=== PATIENT | female | born 1970 | race Caucasian/White ===

== ENCOUNTER → 2016-11-07 | Outpatient (CLI) | payer BC ==
[~2016-11-07] MED LIST: ALBUAER2 INH; AMPH15CA7 PO; AMPH1TAB83 PO; ATV/1 PO; BIOT1TAB5 PO; BUPR150T5 PO; EXEN0.048 SQ; EXEN1INJ3 INJ; FLAX100024 PO; LEVO75TA5 PO; LOSA25TA18 PO; LXP/20 PO; MAGN400T6 PO; METF-382 PO; MULT-506 PO; PRLSR20 PO; SIMV20TA2 PO; VNTHFA/IN INH
--- NOTE | 2016-11-07 19:38 | DIAGNOSTIC IMAGING REPORT ---
TEMPOROMANDIBULAR JOINT RADIOGRAPHS CLINICAL HISTORY: Left temporomandibular joint pain. COMPARISON STUDY: No previous studies for comparison. TECHNIQUE: Open and closed mouth images of the temporomandibular joints were obtained. FINDINGS: Right temporomandibular joint is within normal limits. The right mandibular condyle has a normal appearance. Alignment of the left temporomandibular joint is anatomic however there is irregularity with sclerosis of the left mandibular condyle. This suggests a degenerative process. There is no acute fracture. IMPRESSION: Sclerosis with mild irregularity of the left mandibular condyle which reflects a degenerative process of the left temporomandibular joint. Anatomic alignment. Electronically signed by: Tray Harrington M.D. 11/07/2016 7:36 PM Dictated Date/Time: 11/07/2016 7:35 PM
== END | disposition home or self-care (01) ==
LOC: C.RAD 17:46
PROVIDERS: ATTEND Nurse Practitioner Family
DX: M26.602 Left temporomandibular joint disorder, unspecified (principal)

== ENCOUNTER 2017-05-03 13:11 | Emergency (ER) | payer BC ==
[~2017-05-03] VITALS: Ht 162.6 cm; Wt 140.4 kg
[~2017-05-03 13:11] MED LIST changes: -AMPH15CA7 PO; -EXEN1INJ3 INJ; -VNTHFA/IN INH
[2017-05-03 13:15] VITALS: TEMP 37.2; Ht 162.6 cm; Wt 140.4 kg
[2017-05-03] MEDS ORDERED: OXYCODONE HCL IR 5 MG TAB (IMMEDIATE RELEASE) PO STA (13:29)
[2017-05-03] MEDS ORDERED: AMPH15CA7 PO (13:54)
[2017-05-03] MEDS ORDERED: EXEN1INJ3 INJ (13:54)
[2017-05-03] MEDS ORDERED: VNTHFA/IN INH (13:54)
--- NOTE | 2017-05-03 13:56 | DIAGNOSTIC IMAGING REPORT ---
L HAND MIN 3 VIEWS ROUTINE CLINICAL HISTORY: Left hand pain status post trauma COMPARISON: None. DISCUSSION: The study is limited from a technical standpoint as the patient was unable to straighten his fingers. No fractures or dislocations are visualized. If the patient has distal phalangeal pain, then additional imaging should be considered in follow-up due to the technically limited nature of the current study IMPRESSION: Technically limited study. No fractures or dislocations identified. Electronically signed by: Bienvenido Delgado M.D. 05/03/2017 1:54 PM Dictated Date/Time: 05/03/2017 1:53 PM
--- NOTE | 2017-05-03 13:57 | DIAGNOSTIC IMAGING REPORT ---
L WRIST W/NAVICULAR MIN 3 VIEWS CLINICAL HISTORY: Left wrist pain status post trauma COMPARISON: None. DISCUSSION: No acute fractures or dislocations are visualized. IMPRESSION: No fractures identified. Electronically signed by: Bienvenido Delgado M.D. 05/03/2017 1:55 PM Dictated Date/Time: 05/03/2017 1:55 PM
--- NOTE | 2017-05-03 13:58 | DIAGNOSTIC IMAGING REPORT ---
L FOREARM 2 VIEWS ROUTINE CLINICAL HISTORY: Left forearm pain status post trauma COMPARISON: None. DISCUSSION: No fractures or dislocations are visualized. The examination is limited from a positioning standpoint. IMPRESSION: No fractures or dislocations identified. Electronically signed by: Bienvenido Delgado M.D. 05/03/2017 1:57 PM Dictated Date/Time: 05/03/2017 1:56 PM
--- NOTE | 2017-05-03 14:26 | EMERGENCY ROOM VISIT NOTE ---
ED Visit Note First contact with patient: 13:17 CHIEF COMPLAINT: Left wrist pain HISTORY OF PRESENT ILLNESS: This 46-year-old female patient presents to the emergency department, ambulatory, complaining of pain in the left wrist after an injury earlier today. The patient states she was getting out of the bathtub , when she tripped on the bath mat. The patient states when she tripped, she grabbed the bar in the tub to prevent herself from falling. She states when she did this, she is uncertain how, but she did injure her left wrist. She denies any fall or bending on the wrist. She states the pain is everywhere in her hand, wrist, and upper arm. The patient is not able to move their wrist due to pain. The patient states the pain is severe and 8/10. She states "I am allergic to pain". She also states "I believe I broke my wrist". No laceration , no weakness. No numbness or tingling. The patient denies any other injury. The patient is able to move their fingers and elbow without difficulty. The patient has not had a previous fracture to this wrist. The patient has taken nothing for the pain. The injury occurred approximately 2 hours prior to arrival, and the patient states she used ice on the wrist without relief of her discomfort. REVIEW OF SYSTEMS: A 6 system review of systems was performed with positives and pertinent negatives in the HPI. ALLERGIES: Adhesives, black pepper, metronidazole, nifedipine, atenolol, fluticasone, salmeterol, topiramate, aspirin MEDICATIONS: Albuterol, Adderall, biotin, bupropion, citalopram, Vytorin, flaxseed oil, levothyroxine, Ativan, Cozaar, magnesium oxide, Glucophage, multivitamin, Prilosec, Zocor PMH: Seizures, diabetes, chronic kidney disease, RSD, arthritis, GERD, hyperlipidemia, hypertension, hypothyroidism, anxiety, depression, ADD, granuloma SOCIAL HISTORY: The patient lives locally with family. She denies drug, alcohol , tobacco use. PHYSICAL EXAM: Vital Signs: Reviewed Nurse's notes, vital signs stable. GENERAL : This is a obese 46-year-old white female, in no acute distress, but appears to be in pain, well-developed, well-nourished. NEURO: Alert and oriented to person place and time. Normal sensation to light and sharp touch. MUSCULOSKELETAL: The patient is holding the left wrist in a position of comfort using a pillow held against her body. There is no deformity of the left wrist. The patient is significantly tender even without palpation. When asked to point to the pain, the patient screams in pain. There is tenderness over the entire hand, wrist, and forearm. There is no obvious swelling or edema. There is no snuff box tenderness. Range of motion is not possible, as the patient refuses due to severe pain. There is no tenderness of the elbow, hand or fingers. 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 Radial pulse 2+. SKIN: Normal and intact. The hand is warm and well perfused with capillary refill less than 2 seconds. RADIOLOGY: X-Ray Left Wrist: L WRIST W/NAVICULAR MIN 3 VIEWS CLINICAL HISTORY: Left wrist pain status post trauma COMPARISON: None. DISCUSSION: No acute fractures or dislocations are visualized. IMPRESSION: No fractures identified. Electronically signed by: Bienvenido Delgado M.D. 05/03/2017 1:55 PM Dictated Date/Time: 05/03/2017 1:55 PM X-Ray Left Forearm: L FOREARM 2 VIEWS ROUTINE CLINICAL HISTORY: Left forearm pain status post trauma COMPARISON: None. DISCUSSION: No fractures or dislocations are visualized. The examination is limited from a positioning standpoint. IMPRESSION: No fractures or dislocations identified. Electronically signed by: Bienvenido Delgado M.D. 05/03/2017 1:57 PM Dictated Date/Time: 05/03/2017 1:56 PM X-Ray Left Hand: L HAND MIN 3 VIEWS ROUTINE CLINICAL HISTORY: Left hand pain status post trauma COMPARISON: None. DISCUSSION: The study is limited from a technical standpoint as the patient was unable to straighten his fingers. No fractures or dislocations are visualized. If the patient has distal phalangeal pain, then additional imaging should be considered in follow-up due to the technically limited nature of the current study IMPRESSION: Technically limited study. No fractures or dislocations identified. Electronically signed by: Bienvenido Delgado M.D. 05/03/2017 1:54 PM Dictated Date/Time: 05/03/2017 1:53 PM EMERGENCY DEPARTMENT COURSE: I examined the patient. She was given 5mg OxyIR due to her severe pain. She continued to complain of pain and would not allow anybody to move or palpate the arm. An X-ray of the left wrist, hand, forearm was reviewed by myself and radiologist and showed acute fracture or bony abnormality. A wrist lacer splint was placed under my direction and the position was satisfactory. Neurovascular status rechecked and intact. Discharge instructions reviewed. The patient was discharged home in good condition. I attest that I have personally reviewed the patient's current medication list. Patient was found to have normal blood pressure on screening and does not require follow-up. DIFFERENTIAL DIAGNOSIS: Fracture, contusion, sprain, strain, malignancy, and others DIAGNOSIS: Left Wrist sprain Problem List Medical Problems: (1) Depression Status: Chronic (2) Diabetes Status: Chronic (3) Fibromyalgia Status: Chronic (4) Hyperlipidemia Status: Chronic (5) Migraines Status: Chronic (6) Obesity Status: Chronic (7) Reflex sympathetic dystrophy Status: Chronic (8) RSD lower limb Status: Chronic (9) Seizure disorder Status: Chronic Current/Historical Medications Scheduled Amphetamine-Dextroamphetamine 15MG (Adderall Xr 15MG), 15 MG PO TID Biotin (Biotin), 1,000 MG PO QAM Bupropion Hcl (Bupropion Hcl Xl), 1 TAB PO QAM Escitalopram Oxalate (Escitalopram Oxalate), 20 MG PO QPM Exenatide (Bydureon), 2 MG INJ WK Flaxseed (Linseed) (Flaxseed Oil), 1,000 MG PO QAM Levothyroxine Sodium (Levothyroxine Sodium), 75 MCG PO QAM Losartan Potassium (Cozaar), 25 MG PO BID Magnesium Oxide (Mag-Ox), 400 MG PO QAM Metformin Ext Rel (Glucophage Ext Rel), 1,000 MG PO BID Multivitamin (Multivitamin), 1 TAB PO QAM Omeprazole (Prilosec), 20 MG PO BID Simvastatin (Zocor), 20 MG PO QPM Scheduled PRN Albuterol Hfa (Ventolin Hfa), 2-4 PUFFS INH Q6H PRN for Shortness of Breath Lorazepam (Ativan), 1 MG PO DAILY PRN for Seizure Allergies Coded Allergies: Adhesives (Verified Allergy, Unknown, RED SKIN;RASH, 05/03/17) Atenolol (Verified Allergy, Unknown, RASH, 05/03/17) Black Pepper (Verified Allergy, Unknown, PUFFY LIPS, 05/03/17) Fluticasone (Verified Allergy, Unknown, TREMORS, 05/03/17) Metronidazole (Verified Allergy, Unknown, RASH, 05/03/17) Nifedipine (Verified Allergy, Unknown, SOB, coughing, 05/03/17) Salmeterol (Verified Allergy, Unknown, TREMORS, 05/03/17) Topiramate (Verified Allergy, Unknown, SEVERE STOMACH CRAMPS, 05/03/17) Vital Signs Date Time Temp Pulse Resp B/P (MAP) Pulse Ox O2 Delivery O2 Flow Rate FiO2 05/03/17 14:57 86 16 132/89 95 05/03/17 13:15 37.2 83 18 143/85 98 Room Air Medications Administered Medications (Trade) Dose Ordered Sig/Elizabeth Route Start Time Stop Time Status Last Admin Dose Admin Oxycodone HCl (Roxicodone Immediate Rel Tab) 5 mg NOW STAT PO 05/03/17 13:29 05/03/17 13:32 DC 05/03/17 13:35 5 MG Departure Information Impression Primary Impression: Left wrist sprain Dispostion Home / Self-Care Condition GOOD Referrals Adilene Morales (PCP) Michael Ball M.D. Patient Instructions ED Sprain Wrist, My [facility] Additional Instructions ORTHOPEDIC INSTRUCTIONS: DO NOT drive, drink alcohol, operate machinery, or perform dangerous activities today. You were given medications in the ER that can affect your ability to safely function or operate a vehicle. Acetaminophen(Tylenol) may be used for fever or pain. Use 1000mg every six hours as needed. Avoid using more than 4000mg in a 24 hour period. Ice compresses for 20 minutes at a time four times daily for 2-3 days. Rest and elevate your injury. Use the wrist brace for comfort and to help stabilize the wrist. Return to the ER immediately for any numbness, tingling, severe pain, extreme swelling in the extremity or as needed. Call [facility], [phone], if no improvement in one week, to arrange follow up for your injury. Follow-up with your primary care physician in 2 to 3 days for a recheck of your current condition. Problem Qualifiers Primary Impression: Left wrist sprain Encounter type: initial encounter Qualified Codes: S63.502A - Unspecified sprain of left wrist, initial encounter
[2017-05-03 14:57] VITALS: BP 132/89; PULSE 86; O2SAT 95
== END 2017-05-03 14:58 | disposition home or self-care (01) ==
LOC: C.EDB 13:12 → C.EDD 14:58
DX: S63.502A Unspecified sprain of left wrist, initial encounter (principal); G40.909 Epilepsy, unspecified, not intractable, without status epilepticus; E11.9 Type 2 diabetes mellitus without complications; N18.9 Chronic kidney disease, unspecified; K21.9 Gastro-esophageal reflux disease without esophagitis; E78.5 Hyperlipidemia, unspecified; I12.9 Hypertensive chronic kidney disease with stage 1 through stage 4 chronic kidney disease, or unspecified chronic kidney disease; E03.9 Hypothyroidism, unspecified; F90.9 Attention-deficit hyperactivity disorder, unspecified type; F32.9 Major depressive disorder, single episode, unspecified; F41.9 Anxiety disorder, unspecified; Z79.899 Other long term (current) drug therapy; W18.49XA Other slipping, tripping and stumbling without falling, initial encounter

== ENCOUNTER → 2017-07-10 | Outpatient (CLI) | payer OTHER ==
[~2017-07-10] MED LIST changes: -ALBUAER2 INH; +AMPH15CA7 PO; -AMPH1TAB83 PO; -EXEN0.048 SQ; +EXEN1INJ3 INJ; +VNTHFA/IN INH
--- NOTE | 2017-07-10 13:07 | DIAGNOSTIC IMAGING REPORT ---
ULTRASOUND RIGHT UPPER EXTREMITY VENOUS CLINICAL HISTORY: Right arm pain and swelling. COMPARISON STUDY: No priors. TECHNIQUE: Real-time, grayscale, and color Doppler sonography of the deep veins of the right upper extremity is performed. Compression and augmentation were utilized. FINDINGS: There is no sonographic evidence of deep venous thrombosis identified in the right upper extremity. The right internal jugular, axillary, and brachial veins are patent and normally compressible. Normal venous waveforms and augmentation are seen within the right subclavian vein. The cephalic and basilic veins are clear. The visualized radial and ulnar veins are patent. IMPRESSION: There is no sonographic evidence of deep venous thrombosis identified in the right upper extremity. Electronically signed by: Ronan Dutton M.D. 07/10/2017 1:05 PM Dictated Date/Time: 07/10/2017 1:05 PM
== END | disposition home or self-care (01) ==
LOC: C.ULTR 12:22
PROVIDERS: ATTEND Nurse Practitioner Family
DX: M79.601 Pain in right arm (principal); M79.89 Other specified soft tissue disorders